=== PATIENT | male | born 1945 | race Two or more races ===

== ENCOUNTER 2017-09-07 22:27 | Emergency (ER) | payer BC ==
[~2017-09-07] VITALS: Ht 175.3 cm; Wt 79.4 kg
[~2017-09-07 22:27] MED LIST: ASPI81CH43 PO; BENA10TA9 PO; CARV25TA55 PO; CLOP75TA28 PO; HCTZ25T PO; PANT40T PO; PERCOT PO; PHEN50CH4 OR; SIMV-8 PO; TAMS0.4C36 PO
[2017-09-08 00:31] LABS: Basophils # (auto) 0.1 uL; Basophils % (auto) 2.6 % (0.0-2.0); Eosinophils # (auto) 0.1 uL; Eosinophils % (auto) 2.3 % (0.0-7.0); Hemoglobin 13.9 g/dL (13.5-17.5); Lymphocytes # (auto) 0.5 uL; Lymphocytes % (auto) 9.1 % (10.0-50.0); Mean Corpuscular Hgb Conc. 33.2 g/dL (32.0-36.0); Mean Corpuscular Volume 90.5 fL (80.0-100.0); Monocytes # (auto) 0.4 uL; Monocytes % (auto) 8.1 % (0.0-12.0); Neutrophils # (auto) 4.2 uL; Neutrophils % (auto) 77.9 % (37.0-80.0); Nucleated Red Blood Cells % 0.1 %; Platelet Count (auto) 142 10^3/uL (140-450); Red Cell Distribution Width 15.6 % (11.8-14.3); White Blood Cell 5.4 10^3/uL (4.4-10.8)
[2017-09-08 00:45] LABS: INR 1.05 (0.9-1.15); Partial Thromboplastin Time 30.9 sec (22.64-33.71); Prothrombin Time 11.5 sec (9.37-12.3)
[2017-09-08] MEDS: ACETAMINOPHEN 325 MG TAB PO ONE (00:45)
[2017-09-08 00:56] LABS: Albumin 3.8 g/dL (3.4-5.0); Anion Gap 9 (5-15); BUN/Creatinine Ratio 25.4; Blood Urea Nitrogen 18 mg/dL (7-18); Calcium 8.5 mg/dL (8.5-10.1); Carbon Dioxide 26 mmol/L (21-32); Chloride 99 mmol/L (98-107); GFR African American 140 mL/min; GFR Non-African American 116 mL/min; Glucose 118 mg/dL (74-106); Magnesium 2.5 mg/dL (1.6-2.6); Potassium 3.5 mmol/L (3.5-5.1); Sodium 134 mmol/L (136-145)
[2017-09-08 01:05] LABS: Alkaline Phosphatase 120 U/L (45-117); Aspartate Aminotransferase 48 U/L (15-37); Bilirubin, Total 0.3 mg/dL (0.2-1.0)
[2017-09-08 01:35] LABS: B-Type Natriuretic Peptide 39.6 pg/mL (0-100); Temperature: 21.7 C (20.0-25.0)
[2017-09-08 05:12] LABS: Urine Bilirubin Negative (Negative); Urine Blood Negative /uL (Negative); Urine Color Yellow (Yellow); Urine Glucose Normal (Normal); Urine Ketone 1+ (Negative); Urine Mucus FEW (None Seen); Urine Nitrite POSITIVE (Negative); Urine RBC 1 /hpf (0 - 3); Urine Squamous Epithelial Cell FEW /hpf (<5); Urine Urobilinogen Normal (Negative); Urine pH 5.5 (5.0-8.0)
[2017-09-08 10:35] VITALS: BP 139/72
== END 2017-09-08 11:29 | disposition home or self-care (01) ==
LOC: EDBD 22:27 → ER 22:32
DX: J45.901 Unspecified asthma with (acute) exacerbation (principal); J06.9 Acute upper respiratory infection, unspecified; K21.9 Gastro-esophageal reflux disease without esophagitis; E11.9 Type 2 diabetes mellitus without complications; I50.9 Heart failure, unspecified; I11.0 Hypertensive heart disease with heart failure; E78.5 Hyperlipidemia, unspecified; Z79.82 Long term (current) use of aspirin; Z88.0 Allergy status to penicillin; Z86.73 Personal history of transient ischemic attack (TIA), and cerebral infarction without residual deficits
CPT/HCPCS: 36415; 71010; 80053; 81001; 83735; 83880; 84484; 85025; 85610; 85730; 93005